=== PATIENT | female | born 1985 | race Caucasian/White ===

== ENCOUNTER 2025-09-09 07:05 | Outpatient (CLI) | payer OTHER, SELFPAY ==
--- NOTE | 2025-09-09 07:15 | CRLHL7_ITS ---
For Patients: As a result of the Century Cures Act, medical imaging exams and procedure reports are released immediately into your electronic medical record. You may view this report before your referring provider. If you have questions, please contact your health care provider. Indication: Cervical radiculopathy. Technique: MRI cervical spine without contrast. Noncontrast sagittal T1, T2, STIR and axial T2 SE and GRE sequences are provided. Comparison: Cervical radiographs 06/17/2025. Findings: There is reversal of normal cervical lordosis. Craniocervical junction is normal. No prevertebral or paraspinal edema. No aggressive osseous lesions. No abnormal intramedullary spinal cord signal. C1-2: No spinal canal stenosis. C2-3: No significant spinal canal stenosis or neural foraminal narrowing. C3-4: No significant spinal canal stenosis or neural foramen narrowing. C4-5: Small right central disc protrusion results in mild flattening of the ventral cord surface. Mild spinal canal stenosis. No neural foramen narrowing. C5-6: Mild interspace narrowing. Diffuse disc osteophyte complex flattens the ventral cord surface and results in moderate spinal canal narrowing. Uncovertebral joint hypertrophy and left foraminal disc protrusion results in moderate left neural foraminal narrowing. Uncovertebral joint hypertrophy results in mild to moderate right neural foraminal narrowing. C6-7: No significant spinal canal stenosis or neural foraminal narrowing. C7-T1, T1-2 and T2-3: No significant spinal canal stenosis or neural foraminal narrowing. Impression: 1. No acute osseous or ligamentous abnormality. Similar mild reversal of normal cervical lordosis may be due to muscle spasm or positioning. 2. At C5-6, central disc osteophyte complex flattens the ventral cord surface and results in moderate spinal canal stenosis. Moderate left and [id number] right neural foramen stenosis. 3. At C4-5, small right central protrusion results in minimal flattening of the ventral cord surface and mild spinal canal stenosis. 4. No abnormal intramedullary spinal cord signal. Dictated by Rajeev Renee MD @ 09/10/2025 10:12:40 AM (Electronically Signed)
== END 2025-09-09 07:06 | disposition home or self-care (01) ==
LOC: MRI 07:06
PROVIDERS: Visit Provider Family Medicine
DX: M54.12 Radiculopathy, cervical region (principal); M50.221 Other cervical disc displacement at C4-C5 level
CPT/HCPCS: 72141

== ENCOUNTER 2025-10-12 15:00 | Outpatient (RCR) | payer OTHER, SELFPAY | END 2025-10-12 15:22 | disposition home or self-care (01) | PROVIDERS: Visit Provider Family Medicine | DX: M54.12 Radiculopathy, cervical region (principal); Z51.89 Encounter for other specified aftercare | CPT/HCPCS: 97012; 97110; 97140; 97161 ==